=== PATIENT | male | born 1980 | race Caucasian/White ===

== ENCOUNTER → 2016-06-14 | Outpatient (CLI) | payer OTHER ==
--- NOTE | 2016-06-14 18:15 | XR ---
EXAMINATION TYPE: XR elbow complete LT DATE OF EXAM: 06/14/2016 5:49 PM COMPARISON: NONE HISTORY: Elbow pain after lifting injury today TECHNIQUE: 3 views FINDINGS: There is some spurring on the olecranon process of the ulna. I see no fracture nor dislocat ion. Joint spaces are normal. There is no sign of elbow joint effusion. IMPRESSION: Mild spur formation. Otherwise negative exam.
== END | disposition home or self-care (01) ==
LOC: RADXRMAIN 17:06
PROVIDERS: ATTEND Emergency Medicine
DX: M77.8 Other enthesopathies, not elsewhere classified (principal)

== ENCOUNTER 2017-01-27 06:47 | Emergency (ER) | payer BC ==
[2017-01-27] MEDS ORDERED: SODIUM CHLORIDE 0.9% 500 ML IV STA (07:33)
[2017-01-27] MEDS ORDERED: methylPREDNISolone SOD SUCCI 125 MG/2 ML VIAL IV STA (07:33)
[2017-01-27] MEDS ORDERED: IPRATROPIUM-ALBUTEROL 3 ML NEB INHALATION STA (07:33)
--- NOTE | 2017-01-27 07:37 | ED ---
General Adult HPI - General Chief complaint: Upper Respiratory Infection Stated complaint: RASHIDA Time Seen by Provider: 01/27/17 07:28 Source: patient, family, RN notes reviewed Mode of arrival: ambulatory Limitations: no limitations - History of Present Illness Initial comments: Patient is a pleasant 36-year-old male presenting to the emergency Department with cough and congestion. Symptoms have been present around 10 days. Patient does states other people in the house had similar problems. Patient saw his doctor and was treated for bronchitis. Patient has been placed on Augmentin and steroid Dosepak. Patient states symptoms do get worse. Patient has dyspnea especially with lying down and exertion. Patient has a hot sensation in his chest which he believes is related to coughing. - Related Data Home Medications Medication Instructions Recorded Confirmed Fexofenadine HCl [Ana Allergy] 180 mg PO DAILY 02/27/15 01/27/17 Losartan/Hydrochlorothiazide 1 tab PO DAILY 02/27/15 01/27/17 [Losartan-Hctz 100-12.5 mg Tab] Multivitamins, Thera [Multivitamin 1 tab PO DAILY 02/27/15 01/27/17 (formulary)] Albuterol Sulfate [Proair Hfa] 1 - 2 puff INHALATION RT-Q6H PRN 01/27/17 Amoxicillin/Potassium Clav 1 tab PO Q12H 01/27/17 01/27/17 [Augmentin 875-125 Tablet] Pseudoephedrine 12Hr [Sudafed 12Hr] 120 mg PO Q12H PRN 01/27/17 01/27/17 guaiFENesin [Mucinex] 600 mg PO Q12H PRN 01/27/17 01/27/17 methylPREDNISolone [Medrol Dose See Taper PO DAILY 01/27/17 01/27/17 Pack] Previous Rx's Medication Instructions Recorded Clarithromycin [Biaxin] 500 mg PO Q12HR #20 tablet 01/27/17 guaiFENesin-Coden 100-10MG/5ML 10 ml PO Q6HR PRN #200 ml 01/27/17 [Robitussin AC] Allergies Allergy/AdvReac Type Severity Reaction Status Date / Time No Known Allergies Allergy Verified 01/27/17 07:48 Review of Systems ROS Statement: Those systems with pertinent positive or pertinent negative responses have been documented in the HPI. ROS Other: All systems not noted in ROS Statement are negative. Constitutional: Denies: fever Eyes: Denies: eye pain ENT: Denies: ear pain Respiratory: Reports: cough, dyspnea Cardiovascular: Reports: as per HPI. Denies: palpitations Endocrine: Denies: fatigue Gastrointestinal: Denies: abdominal pain Genitourinary: Denies: urgency Musculoskeletal: Denies: back pain Skin: Denies: rash Past Medical History Past Medical History: Asthma, GERD/Reflux, Hypertension, Sleep Apnea/CPAP/BIPAP Additional Past Medical History / Comment(s): POLYCYTHEMIA, phlebotomies for polycythemia-last done 03/10/15 History of Any Multi-Drug Resistant Organisms: None Reported Additional Past Surgical History / Comment(s): oral surgery, hernia repair 03/16 Past Anesthesia/Blood Transfusion Reactions: No Reported Reaction Past Psychological History: No Psychological Hx Reported Smoking Status: Current some day smoker Past Alcohol Use History: Occasional Past Drug Use History: None Reported - Past Family History Mother Family Medical History: No Reported History General Exam Limitations: no limitations General appearance: alert, in no apparent distress Head exam: Present: atraumatic Eye exam: Present: normal appearance, PERRL ENT exam: Present: normal oropharynx Neck exam: Present: normal inspection Respiratory exam: Present: rhonchi Cardiovascular Exam: Present: regular rate, normal rhythm GI/Abdominal exam: Present: soft. Absent: tenderness Extremities exam: Present: normal inspection Neurological exam: Present: alert Psychiatric exam: Present: normal affect, normal mood Skin exam: Present: normal color Course Vital Signs 01/27/17 01/27/17 01/27/17 06:54 08:00 08:04 Temperature 97.4 F L Pulse Rate 80 80 78 Respiratory 18 20 Rate Blood Pressure 156/93 133/80 O2 Sat by Pulse 99 99 Oximetry 01/27/17 01/27/17 08:14 09:00 Temperature Pulse Rate 84 87 Respiratory 16 Rate Blood Pressure 133/68 O2 Sat by Pulse 97 Oximetry EKG Findings - EKG Comments: EKG Findings:: Normal sinus rhythm 68. [place] 158. QRS 84. QT 400. QTc 425. Normal axis. Normal QRS. Normal ST-T. Medical Decision Making - Medical Decision Making Patient reexamined and resting comfortably in bed. Lungs are clear. Patient is comfortable with discharge. Patient states he just started steroids 3 days ago. Patient is advised to continue his current antibiotics for several days prior to considering changing antibiotics. - Lab Data Result diagrams: 01/27/17 07:55 01/27/17 07:55 Lab Results 01/27/17 01/27/17 01/27/17 Range/Units 07:55 07:55 07:55 WBC 11.1 H (3.8-10.6) k/uL RBC 6.14 H (4.30-5.90) m/uL Hgb 17.0 (13.0-17.5) gm/dL Hct 51.2 (39.0-53.0) % MCV 83.4 (80.0-100.0) fL MCH 27.7 (25.0-35.0) pg MCHC 33.2 (31.0-37.0) g/dL RDW 16.2 H (11.5-15.5) % Plt Count 222 (150-450) k/uL Neutrophils % 74 % Lymphocytes % 16 % Monocytes % 5 % Eosinophils % 3 % Basophils % 0 % Neutrophils # 8.3 H (1.3-7.7) k/uL Lymphocytes # 1.8 (1.0-4.8) k/uL Monocytes # 0.5 (0-1.0) k/uL Eosinophils # 0.3 (0-0.7) k/uL Basophils # 0.1 (0-0.2) k/uL Anisocytosis Slight PT (9.0-12.0) sec INR (<1.2) APTT (22.0-30.0) sec D-Dimer (<0.60) mg/L FEU Sodium 143 (137-145) mmol/L Potassium 4.2 (3.5-5.1) mmol/L Chloride 105 (98-107) mmol/L Carbon Dioxide 27 (22-30) mmol/L Anion Gap 11 mmol/L BUN 20 (9-20) mg/dL Creatinine 0.96 (0.66-1.25) mg/dL Est GFR (MDRD) Af Amer >60 (>60 ml/min/1.73 sqM) Est GFR (MDRD) Non-Af >60 (>60 ml/min/1.73 sqM) Glucose 85 (74-99) mg/dL Calcium 9.3 (8.4-10.2) mg/dL Total Bilirubin 0.6 (0.2-1.3) mg/dL AST 18 (17-59) U/L ALT 34 (21-72) U/L Alkaline Phosphatase 73 (38-126) U/L Total Creatine Kinase 145 (55-170) U/L CK-MB (CK-2) 1.3 (0.0-2.4) ng/mL CK-MB (CK-2) Rel Index 0.9 Troponin I <0.012 (0.000-0.034) ng/mL NT-Pro-B Natriuret Pep pg/mL Total Protein 7.1 (6.3-8.2) g/dL Albumin 4.5 (3.5-5.0) g/dL 01/27/17 01/27/17 Range/Units 07:55 07:55 WBC (3.8-10.6) k/uL RBC (4.30-5.90) m/uL Hgb (13.0-17.5) gm/dL Hct (39.0-53.0) % MCV (80.0-100.0) fL MCH (25.0-35.0) pg MCHC (31.0-37.0) g/dL RDW (11.5-15.5) % Plt Count (150-450) k/uL Neutrophils % % Lymphocytes % % Monocytes % % Eosinophils % % Basophils % % Neutrophils # (1.3-7.7) k/uL Lymphocytes # (1.0-4.8) k/uL Monocytes # (0-1.0) k/uL Eosinophils # (0-0.7) k/uL Basophils # (0-0.2) k/uL Anisocytosis PT 10.4 (9.0-12.0) sec INR 1.0 (<1.2) APTT 25.7 (22.0-30.0) sec D-Dimer <0.17 (<0.60) mg/L FEU Sodium (137-145) mmol/L Potassium (3.5-5.1) mmol/L Chloride (98-107) mmol/L Carbon Dioxide (22-30) mmol/L Anion Gap mmol/L BUN (9-20) mg/dL Creatinine (0.66-1.25) mg/dL Est GFR (MDRD) Af Amer (>60 ml/min/1.73 sqM) Est GFR (MDRD) Non-Af (>60 ml/min/1.73 sqM) Glucose (74-99) mg/dL Calcium (8.4-10.2) mg/dL Total Bilirubin (0.2-1.3) mg/dL AST (17-59) U/L ALT (21-72) U/L Alkaline Phosphatase (38-126) U/L Total Creatine Kinase (55-170) U/L CK-MB (CK-2) (0.0-2.4) ng/mL CK-MB (CK-2) Rel Index Troponin I (0.000-0.034) ng/mL NT-Pro-B Natriuret Pep 15 pg/mL Total Protein (6.3-8.2) g/dL Albumin (3.5-5.0) g/dL - Radiology Data Radiology results: image reviewed (Chest x-ray shows no acute process) Disposition Clinical Impression: Asthmatic bronchitis Disposition: HOME SELF-CARE Condition: Stable Instructions: Acute Bronchitis (ED) Additional Instructions: Please follow-up to primary care physician in the next few days for recheck. Return for difficulty breathing, fevers, chest pain, worsening or changing symptoms or other concerns. Prescriptions: Clarithromycin [Biaxin] 500 mg PO Q12HR #20 tablet guaiFENesin-Coden 100-10MG/5ML [Robitussin AC] 10 ml PO Q6HR PRN #200 ml PRN Reason: Cough Referrals: Lyudmila Powell DO [Primary Care Provider] - 1-2 days Time of Disposition: 09:35
[2017-01-27 08:20] LABS: Anisocytosis Slight; Basophils # (A) 0.1 k/uL (0-0.2); Basophils % (A) 0 %; CH 28.7; CHCM 34.5; Eosinophils # (A) 0.3 k/uL (0-0.7); Eosinophils % (A) 3 %; HCT 51.2 % (39.0-53.0); HDW 2.45; Luc % (Auto) 2; Lymphocytes # (A) 1.8 k/uL (1.0-4.8); Lymphocytes % (A) 16 %; MCH 27.7 pg (25.0-35.0); MCHC 33.2 g/dL (31.0-37.0); MCV 83.4 fL (80.0-100.0); Mean Platelet Volume 7.1; Monocytes # (A) 0.5 k/uL (0-1.0); Monocytes % (A) 5 %; Neutrophils # (A) 8.3 k/uL (1.3-7.7); Neutrophils % (A) 74 %; RBC 6.14 m/uL (4.30-5.90); RDW 16.2 % (11.5-15.5); WBC 11.1 k/uL (3.8-10.6); WBC (Perox) 10.48
[2017-01-27 08:26] LABS: ALT 34 U/L (21-72); AST 18 U/L (17-59); Alkaline Phosphatase 73 U/L (38-126); Anion Gap 11 mmol/L; Blood Urea Nitrogen 20 mg/dL (9-20); Calcium 9.3 mg/dL (8.4-10.2); Carbon Dioxide 27 mmol/L (22-30); Chloride 105 mmol/L (98-107); Glucose 85 mg/dL (74-99); Non-African American GFR(MDRD) >60 (>60 ml/min/1.73 sqM); Potassium 4.2 mmol/L (3.5-5.1); Sodium 143 mmol/L (137-145); Total Bilirubin 0.6 mg/dL (0.2-1.3); Total Protein 7.1 g/dL (6.3-8.2)
[2017-01-27 08:27] LABS: Partial Thromboplastin Time 25.7 sec (22.0-30.0); Prothrombin Time 10.4 sec (9.0-12.0)
--- NOTE | 2017-01-27 08:37 | XR ---
EXAMINATION TYPE: XR chest 2V DATE OF EXAM: 01/27/2017 COMPARISON: 03/18/2015 INDICATION: Difficulty breathing history of asthma TECHNIQUE: Frontal and lateral views of the chest are obtained. FINDINGS: The heart size is normal. The pulmonary vasculature is normal. The lungs are clear. IMPRESSION: 1. No acute pulmonary process.
[2017-01-27 08:45] LABS: Creatine Kinase 145 U/L (55-170)
[2017-01-27 08:57] LABS: Creatine Kinase MB 1.3 ng/mL (0.0-2.4); Troponin I <0.012 ng/mL (0.000-0.034)
[2017-01-27 10:21] VITALS: BP 133/63; PULSE 71; RESP 20; TEMP 97.7
== END 2017-01-27 10:21 | disposition home or self-care (01) ==
LOC: EC 06:47
DX: J45.909 Unspecified asthma, uncomplicated (principal); I10 Essential (primary) hypertension; F17.200 Nicotine dependence, unspecified, uncomplicated; Z79.899 Other long term (current) drug therapy
CPT/HCPCS: 36415; 94640; 85379; 83880; 80053; 82550; 82553; 84484; 85025; 85610; 85730; 71020; 99284; 96374; 96361; J2930

== ENCOUNTER 2017-06-11 07:50 | Emergency (ER) | payer BC ==
[2017-06-11 08:01] VITALS: BP 164/95; PULSE 98; RESP 18; TEMP 98.7
--- NOTE | 2017-06-11 08:44 | XR ---
EXAMINATION TYPE: XR chest 2V DATE OF EXAM: 06/11/2017 HISTORY: cough. REFERENCE: Previous study dated 01/27/2017. FINDINGS: There is a partial eventration of the right hemidiaphragm. The lungs are clear. Pleural spaces are clear. The heart is not enlarged. IMPRESSION: NO ACUTE INTRATHORACIC ABNORMALITY.
--- NOTE | 2017-06-11 08:59 | ED ---
General Adult HPI - General Chief complaint: Upper Respiratory Infection Stated complaint: Cough/Cold Time Seen by Provider: 06/11/17 08:19 Source: patient, RN notes reviewed Mode of arrival: ambulatory Limitations: no limitations - History of Present Illness Initial comments: Patient 37-year-old male who presents emergency room today with a chief complaint of cough congestion over the last week. He does admit that he's had sputum production. Does admit some drainage from the nose. Does admit some pressure in the left ear now started last 2 days. States he had follow-up the family doctor was on Z-Horacio and a Medrol Dosepak just finishing these having little relief the symptoms. Patient denies any other complaints or symptoms currently. Patient denies any shortness of breath, chest pain, back pain, abdominal pain, nausea or vomiting, numbness or tingling, headaches or visual changes, or any other complaints. - Related Data Home Medications Medication Instructions Recorded Confirmed Fexofenadine HCl [Ana Allergy] 180 mg PO DAILY 02/27/15 01/27/17 Losartan/Hydrochlorothiazide 1 tab PO DAILY 02/27/15 01/27/17 [Losartan-Hctz 100-12.5 mg Tab] Multivitamins, Thera [Multivitamin 1 tab PO DAILY 02/27/15 01/27/17 (formulary)] Albuterol Sulfate [Proair Hfa] 1 - 2 puff INHALATION RT-Q6H PRN 01/27/17 Amoxicillin/Potassium Clav 1 tab PO Q12H 01/27/17 01/27/17 [Augmentin 875-125 Tablet] Pseudoephedrine 12Hr [Sudafed 12Hr] 120 mg PO Q12H PRN 01/27/17 01/27/17 guaiFENesin [Mucinex] 600 mg PO Q12H PRN 01/27/17 01/27/17 methylPREDNISolone [Medrol Dose See Taper PO DAILY 01/27/17 01/27/17 Pack] Previous Rx's Medication Instructions Recorded Clarithromycin [Biaxin] 500 mg PO Q12HR #20 tablet 01/27/17 guaiFENesin-Coden 100-10MG/5ML 10 ml PO Q6HR PRN #200 ml 01/27/17 [Robitussin AC] Amoxicillin/Potassium Clav 1 each PO Q12HR #20 tab 06/11/17 [Augmentin 875-125 Tablet] Benzonatate [Tessalon Perles] 100 mg PO TID PRN #20 capsule 06/11/17 Fluticasone Propionate [Flonase 1 - 2 spray EA NOSTRIL DAILY 5 06/11/17 Allergy Relief] Days ml predniSONE 50 mg PO DAILY #3 tab 06/11/17 Allergies Allergy/AdvReac Type Severity Reaction Status Date / Time No Known Allergies Allergy Verified 06/11/17 08:01 Review of Systems ROS Statement: Those systems with pertinent positive or pertinent negative responses have been documented in the HPI. ROS Other: All systems not noted in ROS Statement are negative. Past Medical History Past Medical History: Asthma, GERD/Reflux, Hypertension, Sleep Apnea/CPAP/BIPAP Additional Past Medical History / Comment(s): POLYCYTHEMIA, phlebotomies for polycythemia-last done 03/10/15 History of Any Multi-Drug Resistant Organisms: None Reported Additional Past Surgical History / Comment(s): oral surgery, hernia repair 03/16 Past Anesthesia/Blood Transfusion Reactions: No Reported Reaction Past Psychological History: No Psychological Hx Reported Smoking Status: Former smoker Past Alcohol Use History: Rare Past Drug Use History: None Reported - Past Family History Mother Family Medical History: No Reported History General Exam - General Exam Comments Initial Comments: General: The patient is awake and alert, in no distress, and does not appear acutely ill. Eye: Pupils are equal, round and reactive to light, extra-ocular movements are intact. No nystagmus. There is normal conjunctiva bilaterally. No signs of icterus. Ears, nose, mouth and throat: There are moist mucous membranes and no oral lesions. He does have increased redness erythema to the left ear with evidence for an otitis media. Neck: The neck is supple, there is no tenderness or JVD. Cardiovascular: There is a regular rate and rhythm. No murmur, rub or gallop is appreciated. Respiratory: Lungs are clear to auscultation, respirations are non-labored, breath sounds are equal. No wheezes, stridor, rales, or rhonchi. Musculoskeletal: Normal ROM, no tenderness. Strength 5/5. Sensation intact. Pulses equal bilaterally 2+. Neurological: A&O x 3. CN II-XII intact, There are no obvious motor or sensory deficits. Coordination appears grossly intact. Speech is normal. Skin: Skin is warm and dry and no rashes or lesions are noted. Psychiatric: Cooperative, appropriate mood & affect, normal judgment. Limitations: no limitations Course Vital Signs 06/11/17 07:59 Temperature 98.7 F Pulse Rate 98 Respiratory 18 Rate Blood Pressure 164/95 O2 Sat by Pulse 98 Oximetry Medical Decision Making - Medical Decision Making Patient will be treated for ear infection with Augmentin also given Flonase, Tessalon Perles, and short course of steroids for symptoms. Patient advised follow-up family doctor over the next 2-3 days. Advised return if symptoms increase or worsen. Disposition Clinical Impression: Acute otitis media Disposition: HOME SELF-CARE Condition: Good Instructions: Otitis Media (ED) Additional Instructions: Please use medication as discussed. Please follow-up with family doctor in the next 2 days of symptoms have not improved. Please return to emergency room if the symptoms increase or worsen or for any other concerns. Prescriptions: Amoxicillin/Potassium Clav [Augmentin 875-125 Tablet] 1 each PO Q12HR #20 tab Benzonatate [Tessalon Perles] 100 mg PO TID PRN #20 capsule PRN Reason: Cough Fluticasone Propionate [Flonase Allergy Relief] 1 - 2 spray EA NOSTRIL DAILY 5 Days ml predniSONE 50 mg PO DAILY #3 tab Referrals: Lyudmila Powell DO [Primary Care Provider] - 1-2 days Time of Disposition: 08:58
== END 2017-06-11 09:04 | disposition home or self-care (01) ==
LOC: EC 07:50
DX: H66.92 Otitis media, unspecified, left ear (principal); R05 Cough; R09.89 Other specified symptoms and signs involving the circulatory and respiratory systems; J34.89 Other specified disorders of nose and nasal sinuses; I10 Essential (primary) hypertension; G47.30 Sleep apnea, unspecified; Z87.891 Personal history of nicotine dependence; Z79.52 Long term (current) use of systemic steroids; Z79.899 Other long term (current) drug therapy; Z99.89 Dependence on other enabling machines and devices
CPT/HCPCS: 71046; 99283

== ENCOUNTER 2017-06-13 03:02 | Emergency (ER) | payer BC ==
[2017-06-13] MEDS ORDERED: HYDROcodone/APAP 5-325MG 1 EACH TAB PO STA (03:18)
[2017-06-13] MEDS ORDERED: ACET/COD 300 MG/30 MG STARTER PACK 6 TAB BTL PO STA (03:18)
--- NOTE | 2017-06-13 03:22 | ED ---
ENT HPI - General Source: patient, RN notes reviewed Mode of arrival: ambulatory Limitations: no limitations <Pj Owens - Last Filed: 06/13/17 03:18> <Marlo Chopra - Last Filed: 06/13/17 03:56> - General Chief complaint: ENT Stated complaint: ear infection - History of Present Illness Initial comments: This a 37-year-old male presents emergency Department chief complaint ear pain. Patient states the pain from his ear infection is unbearable. Patient states he tried some [id number] medication today with no relief. Patient denies fever,he states he just felt hot and cold. Patient denies headache, neck pain, neck stiffness, cough or chest congestion. Patient was given Augmentin, prednisone, Flonase. He states that he states in the doses as directed. Patient was seen here a day and half ago. Patient states that he is here for pain relief. (Pj Owens) - Related Data Home Medications Medication Instructions Recorded Confirmed Fexofenadine HCl [Ana Allergy] 180 mg PO DAILY 02/27/15 06/11/17 Losartan/Hydrochlorothiazide 1 tab PO DAILY 02/27/15 06/11/17 [Losartan-Hctz 100-12.5 mg Tab] Albuterol Sulfate [Proair Hfa] 1 - 2 puff INHALATION RT-Q6H PRN 01/27/17 Ascorbic Acid [Vitamin C] 500 mg PO DAILY 06/11/17 06/11/17 Varenicline [Chantix] 0.5 mg PO BID 06/11/17 06/11/17 Previous Rx's Medication Instructions Recorded Amoxicillin/Potassium Clav 1 each PO Q12HR #20 tab 06/11/17 [Augmentin 875-125 Tablet] Benzonatate [Tessalon Perles] 100 mg PO TID PRN #20 capsule 06/11/17 Fluticasone Propionate [Flonase 1 - 2 spray EA NOSTRIL DAILY 5 06/11/17 Allergy Relief] Days ml predniSONE 50 mg PO DAILY #3 tab 06/11/17 Allergies Allergy/AdvReac Type Severity Reaction Status Date / Time No Known Allergies Allergy Verified 06/13/17 03:08 Review of Systems ROS Other: All systems not noted in ROS Statement are negative. <Pj Owens - Last Filed: 06/13/17 03:18> ROS Other: All systems not noted in ROS Statement are negative. <Marlo Chopra - Last Filed: 06/13/17 03:56> ROS Statement: Those systems with pertinent positive or pertinent negative responses have been documented in the HPI. Past Medical History Past Medical History: Asthma, GERD/Reflux, Hypertension, Sleep Apnea/CPAP/BIPAP Additional Past Medical History / Comment(s): POLYCYTHEMIA, phlebotomies for polycythemia-last done 03/10/15 History of Any Multi-Drug Resistant Organisms: None Reported Additional Past Surgical History / Comment(s): oral surgery, hernia repair 03/16 Past Anesthesia/Blood Transfusion Reactions: No Reported Reaction Past Psychological History: No Psychological Hx Reported Smoking Status: Former smoker Past Alcohol Use History: Rare Past Drug Use History: None Reported - Past Family History Mother Family Medical History: No Reported History <Pj Owens - Last Filed: 06/13/17 03:18> General Exam Limitations: no limitations General appearance: alert, in no apparent distress Head exam: Present: atraumatic, normocephalic, normal inspection Eye exam: Present: normal appearance, PERRL, EOMI. Absent: scleral icterus, conjunctival injection, periorbital swelling ENT exam: Present: normal oropharynx, mucous membranes moist, normal external ear exam, other (There is no maxillary or mastoid tenderness noted). Absent: TM 's normal bilaterally (Left TM erythematous) Neck exam: Present: normal inspection, full ROM. Absent: tenderness, meningismus, lymphadenopathy Respiratory exam: Present: normal lung sounds bilaterally. Absent: respiratory distress, wheezes, rales, rhonchi, stridor Cardiovascular Exam: Present: regular rate, normal rhythm, normal heart sounds. Absent: systolic murmur, diastolic murmur, rubs, gallop, clicks Neurological exam: Present: alert, oriented X3, CN II-XII intact, reflexes normal. Absent: motor sensory deficit Skin exam: Present: warm, dry, intact, normal color. Absent: rash <Pj Owens - Last Filed: 06/13/17 03:18> Vital Signs 06/13/17 03:04 Temperature 98.0 F Pulse Rate 101 H Respiratory 16 Rate Blood Pressure 174/90 O2 Sat by Pulse 97 Oximetry Medical Decision Making <Pj Owens - Last Filed: 06/13/17 03:18> <Marlo Chopra - Last Filed: 06/13/17 03:56> - Medical Decision Making 37-year-old male present emergency department for left ear pain recheck. Patient is only had a couple doses of antibiotics at this time. Patient we given pain relief. Patient advised that this is typically not she with narcotic pain medication he'll be given a few tablets to get her through the next 24 hours while antibiotics start to work. Patient follow-up with PCP tomorrow return for worsening symptoms. Patient has no mastoid tenderness to concerns for mastoiditis, no neck pain or any neck stiffness for concern for meningitis. Patient is afebrile. Patient we given [place] here and given the child codeine starter pack. (Pj Owens) Patient was reevaluated by myself, Dr. Chopra. Patient also does complain of having some sinus issues. Patient does have mild tenderness over the frontal and maxillary sinuses. Left TM with erythema and bulging. Patient and family warned of risk of potential TM perforation. Advised to follow-up with ENT. Patient advised to continue Augmentin which he has had 3 doses of. Patient will be provided injection of Rocephin. (Marlo Chopra) Disposition Time of Disposition: 03:21 <Pj Owens - Last Filed: 06/13/17 03:18> <Marlo Chopra - Last Filed: 06/13/17 03:56> Clinical Impression: Acute otitis media, Otalgia Disposition: HOME SELF-CARE Condition: Stable Instructions: Earache (ED) Additional Instructions: Continue medications as prescribed.Please return to the Emergency Department if symptoms worsen or any other concerns. Referrals: Lyudmila Powell DO [Primary Care Provider] - 1-2 days Ren Mejia MD [STAFF PHYSICIAN] - 1-2 days
[2017-06-13] MEDS ORDERED: cefTRIAXone 1,000 MG VIAL (IM USE) IM STA (03:54)
[2017-06-13 04:20] VITALS: BP 138/94; PULSE 98; RESP 18; TEMP 97.4
== END 2017-06-13 04:18 | disposition home or self-care (01) ==
LOC: EC 03:02
DX: H66.92 Otitis media, unspecified, left ear (principal); J34.89 Other specified disorders of nose and nasal sinuses; I10 Essential (primary) hypertension; G47.30 Sleep apnea, unspecified; Z99.89 Dependence on other enabling machines and devices; Z87.891 Personal history of nicotine dependence; Z79.899 Other long term (current) drug therapy
CPT/HCPCS: 99282; 96372; J0696